=== PATIENT | male | born 1970 | race Caucasian/White ===

== ENCOUNTER 2018-09-28 23:38 | Emergency (ER) | payer MEDICAID, OTHER ==
[~2018-09-28] VITALS: Ht 172.7 cm; Wt 116.1 kg
--- NOTE | 2018-09-28 23:45 | NUR ---
Pt walked in for tightness in his chest that radiates to his abdomen, he states "I am stressed." Pt is A, O4, moves all extremities by himself, on RA. Pt appears anxious but cooperates with care.
[2018-09-29] MEDS ORDERED: MAG HYDROX/AL HYDROX/SIMETH 30 ML UDC PO ONE
[2018-09-29] MEDS ORDERED: LIDOCAINE VISCOUS 2% UD 15 ML UDC MM ONE
[2018-09-29] MEDS ORDERED: LIDOCAINE VISCOUS 2% UD 15 ML UDC ONE (00:03)
[2018-09-29] MEDS ORDERED: MAG HYDROX/AL HYDROX/SIMETH 30 ML UDC ONE (00:03)
[2018-09-29 00:26] LABS: BASOPHILS # (AUTO) 0.1 /CMM (0.0-0.2); BASOPHILS % (AUTO) 0.9 % (0.0-2.0); EOSINOPHILS % (AUTO) 2.7 % (0.0-6.0); HEMATOCRIT 40 % (39-51); HEMOGLOBIN 13.4 g/dL (13.5-17.5); LYMPHOCYTES # (AUTO) 2.8 /CMM (0.8-4.8); LYMPHOCYTES % (AUTO) 30.2 % (20.0-44.0); MEAN CORPUSCULAR HGB CONC 33 g/dl (31.0-36.0); MEAN CORPUSCULAR VOLUME 87 fL (80-96); MONOCYTES # (AUTO) 0.9 /CMM (0.1-1.30); MONOCYTES % (AUTO) 9.8 % (2.0-12.0); NEUTROPHILS # (AUTO) 5.2 /CMM (1.8-8.9); NEUTROPHILS % (AUTO) 56.4 % (43.0-81.0); PLATELET COUNT (AUTO) 282 /CMM (150-450); RED BLOOD CELL COUNT(AUTO) 4.62 MIL/uL (4.5-6.0); WHITE BLOOD COUNT (AUTO) 9.3 K/uL (4.3-11.0)
[2018-09-29 00:36] LABS: CALCIUM, SERUM 8.3 mg/dL (8.5-10.1); CARBON DIOXIDE 28 mmol/L (21-32); CHLORIDE 102 mmol/L (98-107); CREATININE 0.9 mg/dL (0.6-1.3); GLUCOSE 96 mg/dL (74-106); POTASSIUM 4.1 mmol/L (3.5-5.1); SODIUM SERUM 138 mmol/L (136-145); UREA NITROGEN, BLOOD 17 mg/dL (7-18)
--- NOTE | 2018-09-29 01:00 | NUR ---
Pt resting comfortably in bed. No c/o cp , no distress noted.
[2018-09-29 01:15] LABS: D-DIMER 0.26 mg/L(FEU (0.17-0.50)
[2018-09-29 01:43] VITALS: BP 140/87
== END 2018-09-29 01:43 | disposition home or self-care (01) ==
LOC: ER 23:41
DX: F41.9 Anxiety disorder, unspecified (principal); R07.89 Other chest pain; E78.00 Pure hypercholesterolemia, unspecified; Z60.2 Problems related to living alone
CPT/HCPCS: 36415; 71045; 80048; 84484; 85025; 85378; 85730; 93005; 99284; A4606; Z7610

== ENCOUNTER 2018-12-08 18:28 | Emergency (ER) | payer MEDICAID ==
[~2018-12-08] VITALS: Ht 180.3 cm; Wt 122.0 kg
--- NOTE | 2018-12-08 18:28 | NUR ---
PT [id number] C/O R KNEE PAIN AND LOWER BACK PAIN S/P GLF, PT IS AAOX4, NOT IN RESPIRATORY DISTRESS, V/S STABLE, KEPT RESTED AND COMFORTABLE.
[2018-12-08] MEDS ORDERED: HYDROCODONE/APAP 10/325MG 1 EA TABLET ONE (18:51)
[2018-12-08] MEDS ORDERED: HYDROCODONE/APAP 10/325MG 1 EA TABLET PO ONE (19:00)
--- NOTE | 2018-12-08 19:05 | NUR ---
RADIOLOGY AT BEDSIDE FOR EVAL.
--- NOTE | 2018-12-08 19:31 | NUR ---
REPORT GIVEN TO LISA MORENO FOR [facility].
[2018-12-08 21:04] VITALS: BP 138/91
== END 2018-12-08 21:07 | disposition home or self-care (01) ==
LOC: ER 18:33
DX: S89.81XA Other specified injuries of right lower leg, initial encounter (principal); M54.5 Low back pain; E78.00 Pure hypercholesterolemia, unspecified; Z60.2 Problems related to living alone; W18.09XA Striking against other object with subsequent fall, initial encounter; Y93.01 Activity, walking, marching and hiking; Y92.89 Other specified places as the place of occurrence of the external cause; Y99.8 Other external cause status
CPT/HCPCS: 29505; 72131; 73564; 73590; 99284; A4606

== ENCOUNTER 2018-12-13 19:57 | Emergency (ER) | payer MEDICAID ==
[~2018-12-13] VITALS: Ht 177.8 cm; Wt 113.4 kg
[2018-12-13 20:18] VITALS: BP 130/78
--- NOTE | 2018-12-13 20:19 | NUR ---
PT BIBS. COMP OF "I FELL A FEW DAYS AGO, WAS SEEN HERE, DIDNT COMPLAIN OF HEAD INJURY, WHEN I WENT HOME, THE N/V DIZZINESS GOT WORSE" PT FELL 5X DAYS AGO. +KO +N/V -DIZZINESS. -SOB, -ACUTE DISTRESS. AWAITING MD GERMAN.
== END 2018-12-13 21:25 | disposition home or self-care (01) ==
LOC: ER 20:01
DX: S09.8XXA Other specified injuries of head, initial encounter (principal); E78.00 Pure hypercholesterolemia, unspecified; Z60.2 Problems related to living alone; W01.0XXA Fall on same level from slipping, tripping and stumbling without subsequent striking against object, initial encounter; Y93.89 Activity, other specified; Y92.89 Other specified places as the place of occurrence of the external cause; Y99.8 Other external cause status
CPT/HCPCS: 70450-TC